=== PATIENT | female | born 1955 | race Caucasian/White ===

== ENCOUNTER 2019-11-27 10:30 | Inpatient (IN) | payer OTHER ==
[~2019-11-27] VITALS: Ht 162.6 cm; Wt 99.6 kg
[2019-11-27] MEDS ORDERED: ONDANSETRON PF 4 MG/2 ML VIAL. ONE (10:49)
[2019-11-27] MEDS ORDERED: MORPHINE SULFATE 4 MG/ML DISP.SYRIN. IV ONE (11:00)
[2019-11-27] MEDS ORDERED: ONDANSETRON PF 4 MG/2 ML VIAL. IVP ONE (11:00)
[2019-11-27] MEDS ORDERED: IV NORMAL SALINE 1,000ML 1,000 ML IV ONE (11:00)
--- NOTE | 2019-11-27 11:00 | PHYS DOC ---
Adult General Chief Complaint Chief Complaint: ABDOMINAL PAIN HPI HPI 64-year-old female presents with central abdominal pain. The patient had pain after she ate lunch yesterday. She also felt bloated. She took an antacid from [facility] and the pain seemed to improve. The patient was able to sleep overnight. Today, the patient had the pain spontaneously come back. It is an 8 out of 10 central cramping with bloating. She has not had pain like this before. She had a normal bowel movement last night. She feels nauseous but did not vomit until she got to the ER. She also felt like she was having cold sweats at home. She had not been feeling ill prior to yesterday afternoon. No measured fever. Review of Systems Review of Systems Constitutional: Denies fever or chills [] Eyes: Denies change in visual acuity, redness, or eye pain [] HENT: Denies nasal congestion or sore throat [] Respiratory: Denies cough or shortness of breath [] Cardiovascular: No additional information not addressed in HPI [] GI: abdominal pain, nausea, vomiting. Denies bloody stools or diarrhea [] : Denies dysuria or hematuria [] Musculoskeletal: Denies back pain or joint pain [] Integument: Denies rash or skin lesions [] Neurologic: Denies headache, focal weakness or sensory changes [] Endocrine: Denies polyuria or polydipsia [] All other systems were reviewed and found to be within normal limits, except as documented in this note. Current Medications Current Medications Current Medications Medications (Trade) Dose Ordered Sig/Lonny Start Time Stop Time Status Last Admin Dose Admin Ondansetron HCl (Zofran) 4 mg STK-MED ONCE 11/27/19 10:49 11/27/19 10:49 DC Sodium Chloride 1,000 ml @ 1,000 mls/hr 1X ONCE 11/27/19 11:00 11/27/19 11:59 UNV Physical Exam Physical Exam Constitutional: Well developed, obese, well nourished, no acute distress, non- toxic appearance. [] HENT: Normocephalic, atraumatic, bilateral external ears normal, oropharynx moist, no oral exudates, nose normal. [] Eyes: PERRLA, EOMI, conjunctiva normal, no discharge. [] Neck: Normal range of motion, no tenderness, supple, no stridor. [] Cardiovascular: Heart rate regular rhythm, no murmur [] Lungs & Thorax: Bilateral breath sounds clear to auscultation [] Abdomen: Bowel sounds normal, soft, mild generalized tenderness, no masses, no pulsatile masses. [] Skin: Warm, dry, no erythema, no rash. [] Back: No tenderness, no CVA tenderness. [] Extremities: No tenderness, no cyanosis, no clubbing, ROM intact, no edema. [] Neurologic: Alert and oriented X 3, normal motor function, normal sensory function, no focal deficits noted. [] Psychologic: Affect normal, judgement normal, mood anxious. [] EKG EKG Sinus bradycardia, rate 51, normal axis, no salivation depressions[] Radiology/Procedures Radiology/Procedures [] Impressions: Examination: CT ABDOMEN PELVIS WO CONTRAST History: Central abdominal pain. Nausea. Comparison/Correlation: None Findings: Axial images of the abdomen and pelvis were obtained without contrast. Coronal reformatted images were provided. Visualized lung bases are clear. Unenhanced liver and spleen are unremarkable. Gallbladder is mildly distended. Calculus is noted within the gallbladder measuring up to 0.7 cm diameter. No biliary dilatation. Pancreas is diffusely enlarged with peripancreatic edema and stranding. No extraluminal gas. Appendix is normal. Moderate quantity of stool in the colon. Borderline distention of proximal small bowel with fluid within likely representing focal ileus noted. Distal decompressed small bowel noted. Right renal pelvis calculus measuring up to 1.1 cm diameter is present. There is an additional calculus lateral to this larger calculus measuring 0.4 cm diameter. Right extrarenal pelvis. Left renal cyst is present. No radiopaque left collecting system calculi. Enlarged fibroid uterus is present. Urinary bladder is unremarkable. L5-S1 disc space narrowing is present. Bony structures are grossly unremarkable. Impression: Pancreas is enlarged with surrounding edema and stranding compatible with acute pancreatitis. No loculated collections. Focal mass lesion is not delineated but evaluation is very limited on this noncontrast exam. Borderline distended proximal small bowel which represents ileus. Consider continued follow-up to exclude possibility of obstruction. Nonobstructive right renal pelvis calculi. Cholelithiasis. Fibroid uterus. PQRS Compliance Statement: One or more of the following individualized dose reduction techniques were utilized for this examination: 1. Automated exposure control 2. Adjustment of the mA and/or kV according to patient size 3. Use of iterative reconstruction technique Electronically signed by: Chris Arias MD (11/27/2019 11:54 AM) [facility] DICTATED AND SIGNED BY: CHRIS ARIAS MD DATE: 11/27/19 1154 CC: MARIETTA ALSTON DO; ZIGGY MURRELL DO ~ Course & Med Decision Making Course & Med Decision Making Pertinent Labs and Imaging studies reviewed. (See chart for details) The patient's labs are significant for slightly elevated liver enzyme, slightly elevated white count, and a creatinine 1.6. Patient has known kidney disease. Her CT scan shows likely pancreatitis. See official report for more details. I have ordered a lipase and an abdominal ultrasound. I spoke with Dr. Neil and he has accepted patient for admission. The patient is in agreement with admission at this facility. She is nothing by mouth and placed on D5NS. [] Dragon Disclaimer Dragon Disclaimer This electronic medical record was generated, in whole or in part, using a voice recognition dictation system. Departure Departure: Impression: Primary Impression: Pancreatitis Disposition: ADMITTED INPATIENT Admitting Physician: Belen Neil Condition: STABLE Referrals: MARIETTA ALSTON DO (PCP) Problem Qualifiers Primary Impression: Pancreatitis Chronicity: acute Pancreatitis type: idiopathic Acute pancreatitis complication: no infection or necrosis Qualified Codes: K85.00 - Idiopathic acute pancreatitis without necrosis or infection ZIGGY MURRELL DO Nov 27, 2019 11:00
[2019-11-27] MEDS ORDERED: IOHEXOL 300 MG/ML 75 ML VIAL. IV ONE (11:15)
[2019-11-27 11:17] LABS: BASO # 0.1 x10^3/uL (0.0-0.2); BASO % 1 % (0-3); EOS # 0.1 x10^3/uL (0.0-0.7); EOS % 1 % (0-3); HEMATOCRIT 38.1 % (36.0-47.0); HEMOGLOBIN 12.7 g/dL (12.0-15.5); LYMPH # 2.3 x10^3/uL (1.0-4.8); LYMPH % 18 % (24-48); MEAN CORPUSCULAR HEMOGLOBIN 28 pg (25-35); MEAN CORPUSCULAR HGB CONC 33 g/dL (31-37); MEAN CORPUSCULAR VOLUME 84 fL (79-100); MONO # 0.7 x10^3/uL (0.0-1.1); MONO % 5 % (0-9); NEUT # 9.5 x10^3uL (1.8-7.7); NEUT % 75 % (31-73); PLATELET COUNT 251 x10^3/uL (140-400); RED BLOOD COUNT 4.53 x10^6/uL (3.50-5.40); RED CELL DISTRIBUTION WIDTH 14.4 % (11.5-14.5); WHITE BLOOD COUNT 12.6 x10^3/uL (4.0-11.0)
--- NOTE | 2019-11-27 11:21 | RAD ---
CHEST AP ONLY Clinical indications: Abdominal pain. COMPARISON: None available. Findings: No acute lung infiltrate or pleural effusion or pulmonary edema or lung mass or pneumothorax is seen. The heart size, pulmonary vasculature, mediastinum and both pete are unremarkable. Impression: No acute radiographic abnormality is seen. Electronically signed by: Timur Mehta MD (11/27/2019 11:18 AM) [id number]
[2019-11-27 11:31] LABS: CALCIUM 9.7 mg/dL (8.5-10.1); CREATININE 1.6 mg/dL (0.6-1.0); GFR 32.5; POTASSIUM 3.4 mmol/L (3.5-5.1)
[2019-11-27 11:36] LABS: ALBUMIN 3.7 g/dL (3.4-5.0); TOTAL BILIRUBIN 1.3 mg/dL (0.2-1.0); TOTAL PROTEIN 7.5 g/dL (6.4-8.2)
--- NOTE | 2019-11-27 11:58 | RAD ---
Examination: CT ABDOMEN PELVIS WO CONTRAST History: Central abdominal pain. Nausea. Comparison/Correlation: None Findings: Axial images of the abdomen and pelvis were obtained without contrast. Coronal reformatted images were provided. Visualized lung bases are clear. Unenhanced liver and spleen are unremarkable. Gallbladder is mildly distended. Calculus is noted within the gallbladder measuring up to 0.7 cm diameter. No biliary dilatation. Pancreas is diffusely enlarged with peripancreatic edema and stranding. No extraluminal gas. Appendix is normal. Moderate quantity of stool in the colon. Borderline distention of proximal small bowel with fluid within likely representing focal ileus noted. Distal decompressed small bowel noted. Right renal pelvis calculus measuring up to 1.1 cm diameter is present. There is an additional calculus lateral to this larger calculus measuring 0.4 cm diameter. Right extrarenal pelvis. Left renal cyst is present. No radiopaque left collecting system calculi. Enlarged fibroid uterus is present. Urinary bladder is unremarkable. L5-S1 disc space narrowing is present. Bony structures are grossly unremarkable. Impression: Pancreas is enlarged with surrounding edema and stranding compatible with acute pancreatitis. No loculated collections. Focal mass lesion is not delineated but evaluation is very limited on this noncontrast exam. Borderline distended proximal small bowel which represents ileus. Consider continued follow-up to exclude possibility of obstruction. Nonobstructive right renal pelvis calculi. Cholelithiasis. Fibroid uterus. PQRS Compliance Statement: One or more of the following individualized dose reduction techniques were utilized for this examination: 1. Automated exposure control 2. Adjustment of the mA and/or kV according to patient size 3. Use of iterative reconstruction technique Electronically signed by: Chris Lugo MD (11/27/2019 11:54 AM) [facility] [place]
[2019-11-27] MEDS ORDERED: ACETAMINOPHEN 325 MG TABLET PO PRN (12:45)
[2019-11-27] MEDS ORDERED: HYDROmorphone PF 1 MG/ML DISP.SYRIN IV ONE (12:45)
[2019-11-27] MEDS ORDERED: IV DEXTROSE 5%-LACT RINGERS 1,000 ML IV ONE (12:45)
--- NOTE | 2019-11-27 13:50 | RAD ---
Limited abdominal ultrasound 11/27/2019 INDICATION: Pancreatitis, rule out obstruction, mass COMPARISON STUDY: CT of the abdomen, earlier same day Discussion: Ultrasound evaluation of the upper abdomen was performed. Static images are submitted to PACS. The pancreas appears somewhat thickened and mildly inhomogeneous consistent with pancreatitis seen on prior CT scan. The liver is top normal in size measuring 17 cm longitudinally. No gross intrahepatic biliary dilatation is identified sonographically. No focal hepatic lesions are identified. Multiple shadowing stones are noted within the gallbladder. No pericholecystic fluid is seen. The gallbladder wall is nonthickened. Common bile duct is dilated measuring 1.2 cm in diameter. Duct is dilated the pancreatic head measuring 1.1 cm in diameter. Definitive choledocholithiasis is not identified sonographically, though sensitivity is poor for this finding. IMPRESSION: 1. Cholelithiasis without evidence of cholecystitis. Dilatation of the common bile duct in the setting of pancreatitis. If there is continued concern for choledocholithiasis or biliary obstruction MRCP or ERCP may be helpful. 2. Thickening of the visualized pancreas consistent with provided history Electronically signed by: Contreras Villanueva MD (11/27/2019 1:47 PM) [id number]
[2019-11-27 16:04] VITALS: BP 149/74
[2019-11-27] MEDS ORDERED: CHLO25TA9 PO (16:21)
[2019-11-27] MEDS ORDERED: METO50TA29 PO (16:21)
[2019-11-27] MEDS ORDERED: OLME40TA12 PO (16:21)
[2019-11-27] MEDS ORDERED: CHOL200078 PO (16:21)
[2019-11-27] MEDS ORDERED: SPIR25TA5 PO (16:21)
[2019-11-27] MEDS ORDERED: LEVO100T5 PO (16:21)
--- NOTE | 2019-11-27 16:34 | EKG ---
[address] [address] Test Date: 2019-11-27 Test Time: 11:12:25 Pat Name: CORTNEY REYNOSO Department: Room: Gender: F Foundation Assistant: : 1955 Requested By: ZIGGY MURRELL Order Number: [id number] Reading MD: Measurements Intervals [place] Rate: 51 P: 29 SC: 174 QRS: -14 QRSD: 90 T: 24 QT: 468 QTc: 433 Interpretive Statements SINUS RHYTHM INTERPOLATED VENTRICULAR PREMATURE COMPLEX(ES) ATRIAL PREMATURE COMPLEX(ES) LEFTWARD AXIS QRS(T) CONTOUR ABNORMALITY CONSIDER ANTEROLATERAL MYOCARDIAL DAMAGE ABNORMAL ECG RI6.01 No previous ECG available for comparison
[2019-11-27] MEDS: ONDANSETRON PF 4 MG/2 ML VIAL. IV PRN (17:07)
--- NOTE | 2019-11-27 17:34 | HP ---
ADMIT DATE: 11/27/2019 HISTORY OF PRESENT ILLNESS: The patient is a 64-year-old female patient who came to the Emergency Room complaining of abdominal pain that is diffuse. She stated her pain started yesterday when she ate her lunch and felt bloated. She took her antacid from [facility]. The pain seems to have improved. She was able to sleep overnight and this morning. The patient has pain spontaneously come back. It is 8/10 central cramping with bloating. She has had pain like this before. She had a normal bowel movement last night. She feels nauseous, but not vomit until she got to the ER. She also felt like she was having cold sweats at home. She was extensively investigated in the Emergency Room. Her lab work showed her white cell count to be slightly elevated 12,600 and her serum lipase was 68,400; mild hyperkalemia and impaired kidney function with a creatinine of 1.6. Her blood sugar was also slightly elevated. Her AST, ALT, alkaline phosphatase were all elevated. She did have a CT scan of the abdomen showed that the pancreas is enlarged with surrounding edema and stranding compatible with acute pancreatitis. No loculated collection focal mass lesion is not delineated, but evaluation is very limited on this noncontrast exam; borderline distended proximal small bowel, which represents ileus. Consider continued followup to exclude the possibility of obstruction. She has nonobstructive right renal pelvis calculi. The gallbladder is mildly distended calculus is noted within the gallbladder measuring up to 0.7 cm in diameter. No biliary dilatation. She was admitted and continued on IV fluid, kept n.p.o., pain medication as well as antiemetic did have also abdominal ultrasound, which showed cholelithiasis without evidence of cholecystitis dilatation of the common bile duct in the setting of pancreatitis. There is continued concern for choledocholithiasis or biliary obstruction. MRCP or ERCP may be helpful thickening of the visualized pancreas consistent with provided history. PAST MEDICAL HISTORY: Significant for hypertension, chronic kidney disease, hyperlipidemia, hypothyroidism, generalized osteoarthritis and cholelithiasis. PAST SURGICAL HISTORY: Significant for , treatment of fissure in anal. ALLERGIES: SHE IS ALLERGIC TO AMOXICILLIN/CLAVULANIC ACID, SULFAMETHOXAZOLE, TRIMETHOPRIM. MEDICATIONS: She is currently on following medications: She is on metoprolol succinate 50 mg p.o. daily, olmesartan, medoxomil, Benicar 40 mg once a day, spironolactone 12.5 mg once a day, chlorthalidone 12.5 mg daily, levothyroxine sodium 100 mcg once a day, cholecalciferol vitamin D3 2000 unit once a day. FAMILY HISTORY: She has one sister older at the age of 72 and seemingly healthy. One brother at age of 59 because of pancreatic cancer. Her another brother is alive at age of 62 and seemingly healthy. Her father at age of 80 because of Parkinson's disease and her mother at age of 81, the cause of is not clear. SOCIAL HISTORY: She is , has 1 son. She does not smoke, drink alcohol very occasionally. Does not use any drugs. 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 REVIEW OF SYSTEMS: As per history of present illness. PHYSICAL EXAMINATION: GENERAL: On arrival to the Emergency Room, the patient looked well and was clearly in no apparent respiratory distress. No pallor, jaundice, cyanosis or thyromegaly. No jugular venous distension. No limb edema. VITAL SIGNS: Her heart rate was 50, blood pressure was 149/74, temperature was 98.6, respiratory rate was 16, and oxygen saturation was 98%. HEAD, EYES, EARS, NOSE AND THROAT: Showed normocephalic, atraumatic. NECK: Supple. HEART: Showed normal first and second heart sounds. No gallop, rub or murmur. CHEST: Clear to auscultation. No crepitation or rhonchi. ABDOMEN: Distended, soft, tender mostly in the epigastric area. NEUROLOGIC: She was awake, alert, responding appropriately. All cranial nerves intact. EXTREMITIES: She moves extremities without difficulty. LABORATORY DATA: Showed a white cell count 12,600; hemoglobin 12.7; hematocrit 38; MCV 84 and platelet count 251,000. Her manual differential showed 75% polymorphs, 18% lymphocytes. Her chemistry showed a serum sodium 138, potassium 3.4, chloride 104, bicarbonate 22, anion gap of 12, BUN 33, creatinine 1.6, estimated GFR was 32 mL per minute. Her glucose 179, calcium was 9.7. Total bilirubin, AST, ALT, alkaline phosphatase are all elevated. Total protein 7.3, albumin was 3.7. Serum lipase was 68,400. ASSESSMENT AND PLAN: In summary, this is a 64-year-old female patient who was admitted with central abdominal pain associated with bloating and nausea. Her lab work showed that serum lipase was extremely high. She has ultrasound showed that she has cholelithiasis without evidence of cholecystitis dilatation of the common bile duct in the setting of pancreatitis. If there is continued concern for choledocholithiasis or biliary obstruction, MRCP or ERCP may be helpful. She has thickening of the visualized pancreas consistent with provided history. Given the finding on the CT scan and MRI done and the ultrasound, I decided to transfer the patient to [facility] to arrange for MRCP to get a Surgical and a Gastroenterology consult. ESTRADA ELLIOTT MD DR: MARGARITO/radha JOB#: [id number] / [id number]
[2019-11-27 19:24] VITALS: BP 145/77
[2019-11-27] MEDS: HYDROmorphone PF 1 MG/ML DISP.SYRIN IV PRN ×2 (22:24→22:29)
[2019-11-27 22:44] VITALS: BP 145/76
[2019-11-28] MEDS: HYDROmorphone PF 1 MG/ML DISP.SYRIN IV PRN ×2 (03:57→07:57)
[2019-11-28 05:59] VITALS: BP 150/74
[2019-11-28 06:15] LABS: BASO # 0.1 x10^3/uL (0.0-0.2); BASO % 1 % (0-3); EOS % 0 % (0-3); HEMATOCRIT 35.2 % (36.0-47.0); HEMOGLOBIN 11.6 g/dL (12.0-15.5); LYMPH # 0.6 x10^3/uL (1.0-4.8); LYMPH % 5 % (24-48); MEAN CORPUSCULAR HEMOGLOBIN 28 pg (25-35); MEAN CORPUSCULAR HGB CONC 33 g/dL (31-37); MEAN CORPUSCULAR VOLUME 84 fL (79-100); MONO # 0.5 x10^3/uL (0.0-1.1); MONO % 4 % (0-9); NEUT # 11.8 x10^3uL (1.8-7.7); NEUT % 91 % (31-73); PLATELET COUNT 199 x10^3/uL (140-400); RED BLOOD COUNT 4.21 x10^6/uL (3.50-5.40); RED CELL DISTRIBUTION WIDTH 14.4 % (11.5-14.5)
[2019-11-28 06:16] LABS: ALBUMIN 3.2 g/dL (3.4-5.0); ALBUMIN/GLOBULIN RATIO 0.9 (1.0-1.7); CALCIUM 8.2 mg/dL (8.5-10.1); CREATININE 2.1 mg/dL (0.6-1.0); GFR 23.7; POTASSIUM 5.1 mmol/L (3.5-5.1); TOTAL BILIRUBIN 0.5 mg/dL (0.2-1.0); TOTAL PROTEIN 6.6 g/dL (6.4-8.2)
[2019-11-28] MEDS: ONDANSETRON PF 4 MG/2 ML VIAL. IV PRN (08:20)
[2019-11-28 10:12] VITALS: BP 132/67
[2019-11-28] MEDS ORDERED: IV DEXTROSE 5%-LACT RINGERS 1,000 ML IV SCH (10:30)
[2019-11-28] MEDS ORDERED: IV DEXTROSE 5 %-0.45 % NACL 1,000 ML IV SCH (14:30)
[2019-11-28 14:38] VITALS: BP 143/75
[2019-11-28 15:21] LABS: CALCIUM 8.5 mg/dL (8.5-10.1); GFR 25.1; POTASSIUM 4.5 mmol/L (3.5-5.1)
[2019-11-28 19:19] VITALS: BP 147/79
--- NOTE | 2019-11-28 23:37 | PN ---
DATE: 11/28/2019 SUBJECTIVE: The patient is resting, slightly propped up in bed, continued to complain of severe abdominal pain. Denied any nausea or vomiting. PHYSICAL EXAMINATION: GENERAL: When I examined her this afternoon, she looked well and was clearly in no apparent respiratory distress, pale, not jaundiced, cyanosed or thyromegaly. No jugular venous distention. No limb edema. VITAL SIGNS: Her heart rate was 84, blood pressure 132/67, temperature 97.8, respiratory rate was 18 and oxygen saturation was 90%. HEAD, EYES, EARS, NOSE AND THROAT: Normocephalic, atraumatic. NECK: Supple. HEART: Showed normal first and second heart sounds. No gallop or murmur. CHEST: Clear to auscultation. No crepitation or rhonchi. ABDOMEN: Distended. Tenderness mostly in the right upper quadrant and epigastric area. No guarding or rigidity. No organomegaly. All hernial orifices intact. Bowel sounds normal. NEUROLOGIC: She is awake, alert, responding appropriately. All cranial nerves intact. She moves extremities without difficulty. Her intake over the last 24 hours was completely recorded. LABORATORY DATA: Showed a white cell count of 13,000, hemoglobin 11.6, hematocrit 35, MCV 84 and platelet count of 199,000. Her chemistry showed a serum sodium 144, potassium 5.1, chloride 108, bicarbonate 26, anion gap of 10, BUN 43, creatinine 2.1, estimated GFR was 23 mL per minute. Her glucose was 140, calcium was 8.2. AST, ALT, alkaline phosphatase were slightly elevated, though they are trending down. Her total protein was 6.6, albumin 3.2. Her lipase was 13,580. ASSESSMENT: 1. Acute pancreatitis, likely due to gallstone pancreatitis. 2. Cholelithiasis without evidence of cholecystitis. Dilatation of common bile duct in the setting of pancreatitis. Other medical problems include hypertension, chronic kidney disease, hyperlipidemia, hypothyroidism, generalized osteoarthritis and known cholelithiasis. ESTRADA ELLIOTT MD DR: MARGARITO/radha JOB#: [id number] / [id number]
== END 2019-11-28 19:50 | disposition short-term general hospital (02) | DRG 438 ==
LOC: ER 10:30 → 1 SOUTH 15:44
PROVIDERS: ADMIT Internal Medicine; ATTEND Internal Medicine
DX: K85.10 Biliary acute pancreatitis without necrosis or infection (principal); N17.0 Acute kidney failure with tubular necrosis; D25.9 Leiomyoma of uterus, unspecified; E03.9 Hypothyroidism, unspecified; E78.5 Hyperlipidemia, unspecified; E87.5 Hyperkalemia; I12.9 Hypertensive chronic kidney disease with stage 1 through stage 4 chronic kidney disease, or unspecified chronic kidney disease; K80.20 Calculus of gallbladder without cholecystitis without obstruction; M15.9 Polyosteoarthritis, unspecified; N18.9 Chronic kidney disease, unspecified; N20.0 Calculus of kidney; Z80.0 Family history of malignant neoplasm of digestive organs; Z82.0 Family history of epilepsy and other diseases of the nervous system; Z88.1 Allergy status to other antibiotic agents; Z79.899 Other long term (current) drug therapy
CPT/HCPCS: 36415; 71045; 74176; 76705; 80048; 80053; 83690; 84484; 85025; 93005; 96361; 96374; 96375; J1170; J2270; J2405; J3010; 99285-25; J7030

== ENCOUNTER 2020-08-07 22:58 | Emergency (ER) | payer OTHER ==
[~2020-08-07] VITALS: Ht 165.1 cm; Wt 97.3 kg
[~2020-08-07 22:58] MED LIST: CHLO25TA9 PO; CHOL200078 PO; LEVO100T5 PO; METO50TA29 PO; OLME40TA12 PO; SPIR25TA5 PO
--- NOTE | 2020-08-07 23:05 | PHYS DOC ---
Past History Past Medical History: Gallstones, Hypertension, Hypothyroid, Kidney Stones, Pancreatitis, UTI, Other Additional Past Medical Histor: ckd3 Past Surgical History: Cholecystectomy, Alcohol Use: None Drug Use: None General Adult HPI: HPI: "... I had this terrible discomfort in my abdomen and right flank... It is kind like a kidney stone but not may be more like a urinary tract infection... But it was so bad that I vomited that is what I decided I need to go to the emergency room... Patient is a 64 year old female who presents with above hx and complaints of right flank and lower right quadrant abdomen tenderness. Onset was tonight. Has had recently history of pancreatitis and cholecystectomy. The Pt. follows , glomerulonephritis, previous kidney stones and a urinary tract infection. Patient denies any travel. Has been in country 20 years from [facility]. Patient only follows at [place] for care. No history of bad food. No history immunosuppression. Patient does have history of glomerulonephritis which he follows at . No history of ill contacts. Review of Systems: Review of Systems: Constitutional: Denies fever or chills Eyes: Denies change in visual acuity HENT: Denies nasal congestion or sore throat Respiratory: Denies cough or shortness of breath Cardiovascular: Denies chest pain or edema GI: Complains of abdominal pain, nausea, vomiting,. Denies bloody stools or diarrhea : Denies dysuria Musculoskeletal: Complains of right flank back pain Integument: Denies rash Neurologic: Denies headache, focal weakness or sensory changes Endocrine: Denies polyuria or polydipsia Lymphatic: Denies swollen glands Psychiatric: Denies depression or anxiety Heart Score: HEART Score for Chest Pain: HEART Score for Chest Pain Response (Comments) Value History Slighlty/Non-Suspicious 0 ECG Normal 0 Age >45 - < 65 1 Risk Factors 1 or 2 Risk Factors 1 Troponin < Normal Limit 0 Total 2 Risk Factors: Risk Factors: DM, Current or recent (<one month) smoker, HTN, HLP, family history of CAD, obesity. Risk Scores: Score 0 - 3: 2.5% MACE over next 6 weeks - Discharge Home Score 4 - 6: 20.3% MACE over next 6 weeks - Admit for Clinical Observation Score 7 - 10: 72.7% MACE over next 6 weeks - Early Invasive Strategies Family History: Family History: Noncontributory to presentation Current Medications: Current Meds: See nursing for home meds Allergies: Allergies: Allergies Coded Allergies Type Severity Reaction Last Updated Verified amoxicillin Allergy Unknown 11/27/19 Yes clavulanic acid Allergy Unknown 11/27/19 Yes sulfamethoxazole Allergy Unknown 11/27/19 Yes trimethoprim Allergy Unknown 11/27/19 Yes Physical Exam: PE: Constitutional: Moderate acute distress, non-toxic appearance. [] HENT: Normocephalic, atraumatic, bilateral external ears normal, oropharynx moist, no oral exudates, nose normal. [] Eyes: PERRLA, EOMI, conjunctiva normal, no discharge. [] Neck: Normal range of motion, no tenderness, supple, no stridor. [] Cardiovascular:Heart rate regular rhythm, no murmur [] Lungs & Thorax: Bilateral breath sounds equal apex on auscultation [] Abdomen: Bowel sounds decreased,, soft, mild right lower quadrant tenderness, no masses, no pulsatile masses. Old surgery scars Skin: Warm, dry, no erythema, no rash. [] Back: No tenderness, right CVA tenderness. [] Extremities: No tenderness, no cyanosis, no clubbing, ROM intact, no edema. No psoas. No heeltap Neurologic: Alert and oriented X 3, normal motor function, normal sensory function, no focal deficits noted. [] Psychologic: Affect anxious, judgement normal, mood normal. [] EKG: EKG: My interpretation of EKG shows a sinus rhythm at 67 bpm. There is mild leftward axis. But no findings of acute STEMI or contralateral changes. [] Radiology/Procedures: Radiology/Procedures: [][address] [address] IMAGING REPORT Signed PATIENT: CORTNEY REYNOSO ACCOUNT: [id number] : 1955 LOCATION: ER AGE: 64 SEX: F EXAM STATUS: REG ER ORD. PHYSICIAN: MARIO STEEL MD REASON: URNINARY FREQ & PAIN.HX KIDNEY STONE,GLOMERULONEPHRITIS,AMIRAH PROCEDURE: ACUTE ABDOMEN SERIES Examination: Acute abdominal series HISTORY: History of renal stone, urinary frequency, pain COMPARISON: None available FINDINGS: The cardiomediastinal silhouette grossly appears unremarkable. Minimal bibasilar atelectasis. The bowel gas pattern appears unremarkable. Cholecystectomy changes. IMPRESSION: 1. Unremarkable bowel gas. 2. Mild bibasilar lung airspace opacities likely atelectasis or infiltrates. Electronically signed by: Drake La MD (08/07/2020 11:36 PM) [id number] DICTATED AND SIGNED BY: DRAKE LA MD DATE: 08/07/202335 CC: MARIETTA ALSTON DO; MARIO STEEL MD ~ IMAGING REPORT Signed PATIENT: CORTNEY REYNOSO ACCOUNT: [id number] : 1955 LOCATION: ER AGE: 64 SEX: F EXAM STATUS: REG ER ORD. PHYSICIAN: MARIO STEEL MD REASON: URNINARY FREQ & PAIN.HX KIDNEY STONE,GLOMERULONEPHRITIS,AMIRAH PROCEDURE: ACUTE ABDOMEN SERIES Examination: Acute abdominal series HISTORY: History of renal stone, urinary frequency, pain COMPARISON: None available FINDINGS: The cardiomediastinal silhouette grossly appears unremarkable. Minimal bibasilar atelectasis. The bowel gas pattern appears unremarkable. Cholecystectomy changes. IMPRESSION: 1. Unremarkable bowel gas. 2. Mild bibasilar lung airspace opacities likely atelectasis or infiltrates. Electronically signed by: Drake La MD (08/07/2020 11:36 PM) [id number] DICTATED AND SIGNED BY: DRAKE LA MD DATE: 08/07/202335 CC: MARIETTA ALSTON DO; MARIO STEEL MD ~ Course & Med Decision Making: Course & Med Decision Making Pertinent Labs and Imaging studies reviewed. (See chart for details) Patient follow-up with primary care. Patient follow-up urology and nephrology. Patient take Tylenol for pain. For marked pain may take Percocet. May take Zofran 8 mg up to 4 times a day for active vomiting. Take Keflex 500 mg 3 times a day for 7 days. Follow-up urine culture. Return if any concerns. Impression: 1. Abdomen Pain 2. Renal colic right 3. Kidney stone distal right with hydronephrosis 4. History of glomerulonephritis 5. Anemia hemoglobin 11.3 6. Mild elevation BUN/creatinine 43/1.8 7. Hypo-magnesium 1.6 [] Dragon Disclaimer: [place] Disclaimer: This electronic medical record was generated, in whole or in part, using a voice recognition dictation system. Departure Departure: Disposition: HOME/RESIDENCE PRIOR TO ADM Condition: STABLE Referrals: MARIETTA ALSTON DO (PCP) Scripts Ondansetron Hcl (ZOFRAN) 8 Mg Tablet 8 MG PO QIDPRN PRN for NAUSEA, #30 BOTTLE Prov: MARIO STEEL MD 08/08/20 Oxycodone HCl/Acetaminophen (Percocet 5-325 mg Tablet) 1 Each Tablet 1 TAB PO PRN QID PRN for renal colic, pain MDD 4 Tablet(s) for 5 Days, #30 TAB 0 Refills Prov: MARIO STEEL MD 08/08/20 Cephalexin (KEFLEX) 500 Mg Capsule 500 MG PO TID for UTI for 7 Days, BOT Prov: MARIO STEEL MD 08/08/20 Justification of Admission: Justification of Admission: Justification of Admission Dx: N/A Dragon Disclaimer This chart was dictated in whole or in part using Voice Recognition software in a busy, high-work load, and often noisy Emergency Department environment. It may contain unintended and wholly unrecognized errors or omissions. Dragon Disclaimer This chart was dictated in whole or in part using Voice Recognition software in a busy, high-work load, and often noisy Emergency Department environment. It may contain unintended and wholly unrecognized errors or omissions. MARIO STEEL MD Aug 07, 2020 23:05
[2020-08-07] MEDS ORDERED: IV RINGERS SOLUTION,LACTATED 1,000 ML IV SCH (23:15)
--- NOTE | 2020-08-07 23:38 | RAD ---
Examination: Acute abdominal series HISTORY: History of renal stone, urinary frequency, pain COMPARISON: None available FINDINGS: The cardiomediastinal silhouette grossly appears unremarkable. Minimal bibasilar atelectasis. The bowel gas pattern appears unremarkable. Cholecystectomy changes. IMPRESSION: 1. Unremarkable bowel gas. 2. Mild bibasilar lung airspace opacities likely atelectasis or infiltrates. Electronically signed by: Drake La MD (08/07/2020 11:36 PM) [id number]
[2020-08-08 00:27] LABS: BASO % 0 % (0-3); EOS # 0.1 x10^3/uL (0.0-0.7); EOS % 1 % (0-3); HEMATOCRIT 33.7 % (36.0-47.0); HEMOGLOBIN 11.5 g/dL (12.0-15.5); LYMPH # 1.6 x10^3/uL (1.0-4.8); LYMPH % 15 % (24-48); MEAN CORPUSCULAR HEMOGLOBIN 29 pg (25-35); MEAN CORPUSCULAR HGB CONC 34 g/dL (31-37); MEAN CORPUSCULAR VOLUME 85 fL (79-100); MONO # 0.6 x10^3/uL (0.0-1.1); MONO % 6 % (0-9); NEUT # 8.1 x10^3uL (1.8-7.7); NEUT % 78 % (31-73); PLATELET COUNT 210 x10^3/uL (140-400); RED BLOOD COUNT 3.95 x10^6/uL (3.50-5.40); RED CELL DISTRIBUTION WIDTH 13.7 % (11.5-14.5); WHITE BLOOD COUNT 10.4 x10^3/uL (4.0-11.0)
[2020-08-08 00:28] LABS: CALCIUM 9.3 mg/dL (8.5-10.1); CREATININE 1.8 mg/dL (0.6-1.0); GFR 28.3; POTASSIUM 4.8 mmol/L (3.5-5.1)
[2020-08-08] MEDS ORDERED: PHENAZOPYRIDINE 200 MG TABLET. PO ONE (00:30)
[2020-08-08 00:32] LABS: BILIRUBIN,URINE NEG (NEG); CLARITY,URINE HAZY; COLOR,URINE STRAW; GLUCOSE,URINE NEG (NEG)
[2020-08-08 00:33] LABS: BACTERIA,URINE FEW /HPF (0-FEW); NITRITE,URINE NEG (NEG); RBC,URINE 20-40 /HPF (0-2); SQUAMOUS EPITHELIAL CELL,UR FEW /LPF; UROBILINOGEN,URINE 0.2 mg/dL (0.2 mg/dL)
[2020-08-08 00:41] LABS: ALBUMIN 3.9 g/dL (3.4-5.0); DIRECT BILIRUBIN 0.1 mg/dL (0.0-0.2); MAGNESIUM 1.6 mg/dL (1.8-2.4); TOTAL BILIRUBIN 0.4 mg/dL (0.2-1.0)
[2020-08-08] MEDS ORDERED: IV NORMAL SALINE 50ML 50 ML ONE (01:21)
[2020-08-08] MEDS ORDERED: cefTRIAXone SODIUM 1 GM VIAL ONE (01:21)
--- NOTE | 2020-08-08 01:37 | RAD ---
Examination: CT of the abdomen pelvis without contrast HISTORY: History of renal stones COMPARISON: 11/27/2019 TECHNIQUE: Axial CT images of the abdomen pelvis were performed without contrast coronal and sagittal reformats are performed. Exposure: One or more of the following individualized dose reduction techniques were utilized for this examination: 1. Automated exposure control 2. Adjustment of the mA and/or kV according to patient size 3. Use of iterative reconstruction technique FINDINGS: Minimal left lingular atelectasis. No evidence of free air identified in the abdomen. The visualized noncontrasted liver, spleen, adrenals grossly appears unremarkable.: Cystectomy clips identified. The stomach is mildly distended. The visualized pancreas grossly appears unremarkable. Small bowel is nondilated. The appendix is normal. Feces and gas noted in the colon. Urinary bladder is mildly distended. Cystic structure identified in the left kidney measuring 3.7 cm. There is a 9 mm calculus identified in the right kidney. Moderate right-sided hydronephrosis and mild right hydroureter identified. There is 4 mm calculus identified in the distal right ureter just proximal to the right ureterovesical junction. There is a 4.6 cm density identified abutting the uterus could be a fibroid, unchanged moderate degenerative changes lumbar spine. IMPRESSION: 1. A 4 mm calculus identified in the distal right ureter just proximal to the right ureterovesical junction causing moderate right-sided hydronephrosis and mild right hydroureter. 2. Right nephrolithiasis measuring 9 mm. 3. Fibroid uterus. Electronically signed by: Drake La MD (08/08/2020 1:34 AM) [id number]
[2020-08-08] MEDS ORDERED: OXYC-325 PO (01:54)
[2020-08-08] MEDS ORDERED: ONDA8TAB9 PO (01:54)
[2020-08-08] MEDS ORDERED: CEPH-264 PO (01:54)
[2020-08-08 02:05] VITALS: BP 160/81
--- NOTE | 2020-08-08 04:50 | EKG ---
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
[2020-08-09] MEDS ORDERED: PROM25SU33 RC (10:21)
== END 2020-08-08 02:10 | disposition home or self-care (01) ==
LOC: ER 22:58
DX: N13.2 Hydronephrosis with renal and ureteral calculous obstruction (principal); N05.9 Unspecified nephritic syndrome with unspecified morphologic changes; D64.9 Anemia, unspecified; R79.89 Other specified abnormal findings of blood chemistry; E83.42 Hypomagnesemia; R11.2 Nausea with vomiting, unspecified; I10 Essential (primary) hypertension; E03.9 Hypothyroidism, unspecified; Z87.442 Personal history of urinary calculi; Z87.440 Personal history of urinary (tract) infections; Z90.49 Acquired absence of other specified parts of digestive tract; Z98.890 Other specified postprocedural states; Z88.1 Allergy status to other antibiotic agents; Z88.2 Allergy status to sulfonamides
CPT/HCPCS: 36415; 74022; 74176; 80048; 80076; 81001; 83690; 83735; 83880; 84484; 85025; 85610; 85730; 87086; 93005; 96361; 96374; 99285; J0696; J7120; 87077; 87186

== ENCOUNTER 2020-08-09 07:18 | Emergency (ER) | payer OTHER ==
[~2020-08-09] VITALS: Ht 165.1 cm; Wt 97.3 kg
[~2020-08-09 07:18] MED LIST changes: +CEPH-264 PO; +ONDA8TAB9 PO; +OXYC-325 PO
--- NOTE | 2020-08-09 07:37 | PHYS DOC ---
Past History Past Medical History: Gallstones, Hypertension, Hypothyroid, Kidney Stones, Pancreatitis, UTI, Other Additional Past Medical Histor: glomelular nephritis, anal fistula, rt breast lump Past Surgical History: Cholecystectomy, Additional Past Surgical Histo: anal fistula repairx3; removal of breast lump- rt breast Alcohol Use: None Drug Use: None General Adult EDM: Chief Complaint: NAUSEA/VOMITING/DIARRHEA HPI: HPI: Patient is a 64-year-old female presents with a chief complaint of nausea vomiting. Patient was here 2 days ago and diagnosed with a right ureteral stone. Patient has persistent right flank pain that is radiating to the abdomen but her main problem is nausea vomiting and unable to keep anything down. Patient denies any fever. Pain is not worse with anything but is better with pain meds but she cannot keep them down. Pain is stabbing in the right flank. Review of Systems: Review of Systems: Constitutional: Denies fever or chills Eyes: Denies change in visual acuity HENT: Denies nasal congestion or sore throat Respiratory: Denies cough or shortness of breath Cardiovascular: Denies chest pain or edema GI: Complains of abdominal pain, nausea, and vomiting, but no bloody stools or diarrhea : Denies dysuria Musculoskeletal: Complains of back pain but no joint pain Integument: Denies rash Neurologic: Denies headache, focal weakness or sensory changes Endocrine: Denies polyuria or polydipsia Lymphatic: Denies swollen glands Psychiatric: Denies depression or anxiety Heart Score: Risk Factors: Risk Factors: DM, Current or recent (<one month) smoker, HTN, HLP, family history of CAD, obesity. Risk Scores: Score 0 - 3: 2.5% MACE over next 6 weeks - Discharge Home Score 4 - 6: 20.3% MACE over next 6 weeks - Admit for Clinical Observation Score 7 - 10: 72.7% MACE over next 6 weeks - Early Invasive Strategies Current Medications: Current Meds: Current Medications Medications (Trade) Dose Ordered Sig/Lonny Start Time Stop Time Status Last Admin Dose Admin Ketorolac Tromethamine (Toradol 15mg Vial) 15 mg 1X ONCE 08/09/20 07:45 08/09/20 07:46 UNV Ondansetron HCl (Zofran) 4 mg 1X ONCE 08/09/20 07:45 08/09/20 07:46 UNV Sodium Chloride 1,000 ml @ 1,000 mls/hr 1X ONCE 08/09/20 07:45 08/09/20 08:44 UNV Allergies: Allergies: Allergies Coded Allergies Type Severity Reaction Last Updated Verified amoxicillin Allergy Unknown 08/07/20 Yes clavulanic acid Allergy Unknown 08/07/20 Yes sulfamethoxazole Allergy Unknown 08/07/20 Yes trimethoprim Allergy Unknown 08/07/20 Yes Physical Exam: PE: Constitutional: Well developed, well nourished, no acute distress, non-toxic appearance. [] HENT: Normocephalic, atraumatic, bilateral external ears normal, no trismus nose normal. [] Eyes: PERRLA, EOMI, conjunctiva normal, no discharge. [] Neck: Normal range of motion, no tenderness, supple, no stridor. [] Cardiovascular:Heart rate regular rhythm, no murmur [] Lungs & Thorax: Bilateral breath sounds clear to auscultation [] Abdomen: , soft, no tenderness, no masses, no pulsatile masses. [] Skin: Warm, dry, no erythema, no rash. [] Back: No tenderness, no CVA tenderness. [] Extremities: No tenderness, no cyanosis, no clubbing, ROM intact, no edema. [] Neurologic: Alert and oriented X 3, normal motor function, normal sensory function, no focal deficits noted. [] Psychologic: Affect normal, judgement normal, mood normal. [] Current Patient Data: Labs: Laboratory Tests Test 08/09/20 07:59 08/09/20 08:12 Urine Collection Type Unknown Urine Color Yellow Urine Clarity Clear Urine pH 5.0 Urine Specific Victor 1.025 Urine Protein Neg Urine Glucose (UA) Neg mg/dL Urine Ketones (Stick) Neg mg/dL Urine Blood Mod Urine Nitrite Pos Urine Bilirubin Neg Urine Urobilinogen Dipstick 0.2 mg/dL Urine Leukocyte Esterase Neg Urine RBC 11-20 /HPF Urine WBC 5-10 /HPF Urine Squamous Epithelial Cells Few /LPF Urine Bacteria Few /HPF Urine Mucus Slight /LPF White Blood Count 11.8 x10^3/uL Red Blood Count 3.90 x10^6/uL Hemoglobin 11.2 g/dL Hematocrit 33.5 % Mean Corpuscular Volume 86 fL Mean Corpuscular Hemoglobin 29 pg Mean Corpuscular Hemoglobin Concent 33 g/dL Red Cell Distribution Width 13.8 % Platelet Count 202 x10^3/uL Neutrophils (%) (Auto) 86 % Lymphocytes (%) (Auto) 9 % Monocytes (%) (Auto) 5 % Eosinophils (%) (Auto) 0 % Basophils (%) (Auto) 0 % Neutrophils # (Auto) 10.1 x10^3uL Lymphocytes # (Auto) 1.0 x10^3/uL Monocytes # (Auto) 0.6 x10^3/uL Eosinophils # (Auto) 0.0 x10^3/uL Basophils # (Auto) 0.0 x10^3/uL Sodium Level 137 mmol/L Potassium Level 4.4 mmol/L Chloride Level 103 mmol/L Carbon Dioxide Level 24 mmol/L Anion Gap 10 Blood Urea Nitrogen 38 mg/dL Creatinine 2.0 mg/dL Estimated GFR (Cockcroft-Gault) 25.1 Glucose Level 128 mg/dL Calcium Level 9.1 mg/dL Current Medications Medications (Trade) Dose Ordered Sig/Lonny Route PRN Reason Start Time Stop Time Status Last Admin Dose Admin Sodium Chloride 1,000 ml @ 1,000 mls/hr 1X ONCE IV 08/09/20 07:45 08/09/20 08:44 DC 08/09/20 08:10 Ketorolac Tromethamine (Toradol 15mg Vial) 15 mg 1X ONCE IVP 08/09/20 07:45 08/09/20 07:46 DC 08/09/20 08:11 Ondansetron HCl (Zofran) 4 mg 1X ONCE IVP 08/09/20 07:45 08/09/20 07:46 DC 08/09/20 08:10 Vital Signs: Vital Signs Date Time Temp Pulse Resp B/P (MAP) Pulse Ox O2 Delivery O2 Flow Rate FiO2 08/09/20 07:18 97.8 55 16 149/75 (99 97 Room Air EKG: EKG: [] Radiology/Procedures: Radiology/Procedures: [][address] [address] IMAGING REPORT Signed PATIENT: CORTNEY REYNOSO ACCOUNT: [id number] : 1955 LOCATION: ER AGE: 64 SEX: F EXAM STATUS: REG ER ORD. PHYSICIAN: VERO GORDON MD REASON: r flank pain, kidney stone PROCEDURE: KUB KUB Clinical indications: Right flank pain. Kidney stone. FINDINGS: No radiopaque stone is seen overlying either renal shadow. The stone seen within the distal right ureter on the CT study dated August 08, 2020 cannot be appreciated radiographically since it may not be radiodense. Calcified phleboliths are seen within the left side of the anatomic pelvis. No obstructive bowel pattern is evident. No abnormal fecal retention is seen. The osseous structures appear intact. Cholecystectomy clips are apparent. IMPRESSION: No radiopaque stone is evident. Electronically signed by: Linden Mehta MD (08/09/2020 9:19 AM) [id number] DICTATED AND SIGNED BY: LINDEN MEHTA MD DATE: 08/09/20918 CC: MARIETTA ALSTON DO; VERO GORDON MD ~ [place] [address] IMAGING REPORT Signed PATIENT: CORTNEY REYNOSO ACCOUNT: [id number] : 1955 LOCATION: ER AGE: 64 SEX: F EXAM STATUS: REG ER ORD. PHYSICIAN: VERO GORDON MD REASON: r flank pain, hx of ureteral stone PROCEDURE: RENAL COMPLETE BILATERAL Complete retroperitoneal ultrasound INDICATION: Right flank pain. History of ureteral stone. COMPARISON: Abdomen pelvis CT without IV contrast 08/08/2020 TECHNIQUE: Grayscale and color Doppler imaging focused on the kidneys and urinary bladder was performed transabdominally. FINDINGS: The right kidney measures 13.0 x 5.1 x 5.3 cm and demonstrates hydronephrosis similar to prior. Shadowing echogenic focus at the inferior pole right kidney compatible with residual stone is present. Normal blood flow to the right kidney. Left kidney measures 10.8 x 5.2 x 4.5 cm and contains a cyst with thin internal septation measuring 3.7 x 3.0 x 3.7 cm. No left hydronephrosis or shadowing stones are identified. In the urinary bladder, no stones or wall thickening are identified prevoid volume measures 49 mL. Post void images were not acquired. IMPRESSION: Persistent right hydronephrosis with no ureteral jets seen in the urinary bladder. Cannot confirm successful passage of known distal right ureteral stone. Electronically signed by: Erick Orta MD (08/09/2020 10:01 AM) [facility] DICTATED AND SIGNED BY: ERICK ORTA MD DATE: 08/09/20 1001 CC: MARIETTA ALSTON DO; VERO GORDON MD ~ Course & Med Decision Making: Course & Med Decision Making Pertinent Labs and Imaging studies reviewed. (See chart for details) [] Patient reassessed at 8:45 AM and pain is gone. 64-year-old female presents with female presents with nausea and persistent right flank pain from a kidney stone. Patient feels much better with treatment in ER. BUN and creatinine are relatively stable and ultrasound shows persistent hydro-. Pain is relieved while in the ER. I looked up her urine culture from a couple days ago and looks like a contaminated specimen. Patient will continue the Keflex as her white count is little bit elevated. Patient was given rectal promethazine and given return precautions. Dragon Disclaimer: Dragon Disclaimer: This electronic medical record was generated, in whole or in part, using a voice recognition dictation system. Departure Departure: Impression: Primary Impression: Right ureteral stone Additional Impression: Vomiting Disposition: 01 HOME/RESIDENCE PRIOR TO ADM Condition: STABLE Referrals: MARIETTA ALSTON DO (PCP) urology 2-3 days Patient Instructions: Kidney Stones Additional Instructions: EMERGENCY DEPARTMENT GENERAL DISCHARGE INSTRUCTIONS THANK YOU for coming to the [facility] Emergency Department (ED) today and trusting us with your care. We trust that you had a positive experience in our Emergency Department. YOUR FOLLOW UP INSTRUCTIONS ARE FOLLOWS: Do you have a private doctor? If you do not have a private doctor, please ask for a resource list of physicians or clinics that may be able to assist you with follow up care. The Emergency Physician has interpreted your x-rays. The X-ray specialist will also review them. If there is a change in the findings you will be notified in 48 hours when at all possible. A lab test or lab culture may have been done, your results will be reviewed and you will be notified if you need a change in treatment. ADDITIONAL INSTRUCTIONS AND INFORMATION Your care today has been supervised by a physician who is specially trained in emergency care. Many problems require more than one evaluation for a complete diagnosis and treatment. We recommend that you schedule your follow up appointment as recommended to ensure complete treatment of your illness or injury. If you are unable to obtain follow up care and continue to have a problem, or if your condition worsens we recommend that you return to the ED. We are not able to safely determine your condition over the phone nor are we able to give sound medical advice over the phone. For these safety reasons, if you call for medical advice we will ask you to come to the ED for further evaluation If you have any questions regarding these discharge instructions please call the ED at . SAFETY INFORMATION In the interest of safety, wellness, and injury prevention; we encourage you to wear your seatbelt, if you smoke; quit smoking, and we encourage your family to use protective helmet for bicycling and other sporting events that present an increased risk for head injury. IF YOUR SYMPTOMS WORSEN OR NEW SYMPTOMS DEVELOP, OR YOU HAVE CONCERNS ABOUT YOUR CONDITION; OR IF YOUR CONDITION WORSENS WHILE YOU ARE WAITING FOR YOUR FOLLOW UP APPOINTMENT; EITHER CONTACT YOUR PRIMARY CARE DOCTOR, THE PHYSICIAN WHOSE NAME AND NUMBER YOU WERE GIVEN, OR RETURN TO THE ED IMMEDIATELY. Scripts Promethazine Hcl (PROMETHAZINE HCL) 25 Mg Supp.rect 25 MG RC Q6HRS PRN for NAUSEA, #15 SUPP.RECT Prov: VERO GORDON MD 08/09/20 Justification of Admission: Justification of Admission: Justification of Admission Dx: N/A VERO GORDON MD Aug 09, 2020 07:37
[2020-08-09] MEDS ORDERED: IV NORMAL SALINE 1,000ML 1,000 ML IV ONE (07:45)
[2020-08-09] MEDS ORDERED: ONDANSETRON PF 4 MG/2 ML VIAL. IVP ONE (07:45)
[2020-08-09] MEDS ORDERED: KETOROLAC 15 MG/ML VIAL. IVP ONE (07:45)
[2020-08-09 08:37] LABS: BASO % 0 % (0-3); EOS % 0 % (0-3); HEMATOCRIT 33.5 % (36.0-47.0); HEMOGLOBIN 11.2 g/dL (12.0-15.5); LYMPH % 9 % (24-48); MEAN CORPUSCULAR HEMOGLOBIN 29 pg (25-35); MEAN CORPUSCULAR HGB CONC 33 g/dL (31-37); MEAN CORPUSCULAR VOLUME 86 fL (79-100); MONO # 0.6 x10^3/uL (0.0-1.1); MONO % 5 % (0-9); NEUT # 10.1 x10^3uL (1.8-7.7); NEUT % 86 % (31-73); PLATELET COUNT 202 x10^3/uL (140-400); RED CELL DISTRIBUTION WIDTH 13.8 % (11.5-14.5); WHITE BLOOD COUNT 11.8 x10^3/uL (4.0-11.0)
[2020-08-09 08:43] LABS: CALCIUM 9.1 mg/dL (8.5-10.1); GFR 25.1; POTASSIUM 4.4 mmol/L (3.5-5.1)
[2020-08-09 08:46] LABS: BILIRUBIN,URINE NEG (NEG); CLARITY,URINE CLEAR; COLOR,URINE YELLOW; GLUCOSE,URINE NEG (NEG)
[2020-08-09 08:47] LABS: BACTERIA,URINE FEW /HPF (0-FEW); NITRITE,URINE POS (NEG); SQUAMOUS EPITHELIAL CELL,UR FEW /LPF; UROBILINOGEN,URINE 0.2 mg/dL (0.2 mg/dL)
--- NOTE | 2020-08-09 09:22 | RAD ---
KUB Clinical indications: Right flank pain. Kidney stone. FINDINGS: No radiopaque stone is seen overlying either renal shadow. The stone seen within the distal right ureter on the CT study dated August 08, 2020 cannot be appreciated radiographically since it may not be radiodense. Calcified phleboliths are seen within the left side of the anatomic pelvis. No obstructive bowel pattern is evident. No abnormal fecal retention is seen. The osseous structures appear intact. Cholecystectomy clips are apparent. IMPRESSION: No radiopaque stone is evident. Electronically signed by: Timur Mehta MD (08/09/2020 9:19 AM) [id number]
[2020-08-09 09:54] VITALS: BP 135/63
--- NOTE | 2020-08-09 10:04 | RAD ---
Complete retroperitoneal ultrasound INDICATION: Right flank pain. History of ureteral stone. COMPARISON: Abdomen pelvis CT without IV contrast 08/08/2020 TECHNIQUE: Grayscale and color Doppler imaging focused on the kidneys and urinary bladder was performed transabdominally. FINDINGS: The right kidney measures 13.0 x 5.1 x 5.3 cm and demonstrates hydronephrosis similar to prior. Shadowing echogenic focus at the inferior pole right kidney compatible with residual stone is present. Normal blood flow to the right kidney. Left kidney measures 10.8 x 5.2 x 4.5 cm and contains a cyst with thin internal septation measuring 3.7 x 3.0 x 3.7 cm. No left hydronephrosis or shadowing stones are identified. In the urinary bladder, no stones or wall thickening are identified prevoid volume measures 49 mL. Post void images were not acquired. IMPRESSION: Persistent right hydronephrosis with no ureteral jets seen in the urinary bladder. Cannot confirm successful passage of known distal right ureteral stone. Electronically signed by: Christ Dykes MD (08/09/2020 10:01 AM) [facility] [place]
[2020-08-09] MEDS ORDERED: PROM25SU33 RC (10:21)
== END 2020-08-09 10:30 | disposition home or self-care (01) ==
LOC: ER 07:18
DX: N13.2 Hydronephrosis with renal and ureteral calculous obstruction (principal); R11.2 Nausea with vomiting, unspecified; I10 Essential (primary) hypertension; E03.9 Hypothyroidism, unspecified; Z87.442 Personal history of urinary calculi; Z87.440 Personal history of urinary (tract) infections; Z90.49 Acquired absence of other specified parts of digestive tract; Z98.890 Other specified postprocedural states; Z88.1 Allergy status to other antibiotic agents; Z88.2 Allergy status to sulfonamides; Z88.8 Allergy status to other drugs, medicaments and biological substances
CPT/HCPCS: 36415; 74018; 76770; 80048; 81001; 85025; 87086; 96361; 96374; 96375; 99285; J1885; J2405; J7030

== ENCOUNTER 2020-10-21 15:22 | Emergency (ER) | payer MEDICARE, OTHER ==
[~2020-10-21] VITALS: Ht 165.1 cm; Wt 97.3 kg
[~2020-10-21 15:22] MED LIST changes: +PROM25SU33 RC
[2020-10-21 15:34] VITALS: BP 174/76
--- NOTE | 2020-10-21 15:57 | PHYS DOC ---
Past History Past Medical History: Gallstones, Hypertension, Hypothyroid, Kidney Stones, Pancreatitis, UTI, Other Additional Past Medical Histor: glomelular nephritis, anal fistula, rt breast lump Past Surgical History: Cholecystectomy, Additional Past Surgical Histo: anal fistula repairx3; removal of breast lump- rt breast Alcohol Use: None Drug Use: None General Adult EDM: Chief Complaint: FOOT INJURY PAIN HPI: HPI: Patient is a 65 year old female who presents with right ankle pain. Patient has pain around Achilles and on top of foot with movement that began yesterday morning. Patient believes it is an overuse injury. Denies trauma. Hx of kidney disease so patient preferred no pain medication. Review of Systems: Review of Systems: Constitutional: Denies fever or chills Eyes: Denies redness or eye pain HENT: Denies nasal congestion or sore throat Respiratory: Denies cough or shortness of breath Cardiovascular: Denies chest pain or palpitations GI: Denies abdominal pain, nausea, or vomiting : Denies dysuria or hematuria Musculoskeletal: Denies back pain or joint pain Integument: Denies rash or skin lesions. Reports right ankle pain. Neurologic: Denies headache, focal weakness or sensory changes Complete systems were reviewed and found to be within normal limits, except as documented in this note. Allergies: Allergies: Allergies Coded Allergies Type Severity Reaction Last Updated Verified amoxicillin Allergy Unknown 08/07/20 Yes clavulanic acid Allergy Unknown 08/07/20 Yes sulfamethoxazole Allergy Unknown 08/07/20 Yes trimethoprim Allergy Unknown 08/07/20 Yes Physical Exam: PE: Constitutional: Well developed, well nourished, no acute distress, non-toxic appearance HENT: Normocephalic, atraumatic Eyes: Conjunctiva normal, no discharge Neck: Normal range of motion, no tenderness, supple Lungs & Thorax: No respiratory distress, equal chest rise and fall Abdomen: Soft, no tenderness Skin: Warm, dry, no erythema, no rash Back: No tenderness, no CVA tenderness Extremities: Pain with movement of right ankle. No signs of infection or bone fracture. Neurologic: Alert and oriented X 3, normal motor function, normal sensory function, no focal deficits noted Psychologic: Affect normal, judgment normal Current Patient Data: Vital Signs: Vital Signs Date Time Temp Pulse Resp B/P (MAP) Pulse Ox O2 Delivery O2 Flow Rate FiO2 10/21/20 15:34 97.9 94 16 174/76 (108) 98 Room Air Heart Score: Risk Factors: Risk Factors: DM, Current or recent (<one month) smoker, HTN, HLP, family history of CAD, obesity. Risk Scores: Score 0 - 3: 2.5% MACE over next 6 weeks - Discharge Home Score 4 - 6: 20.3% MACE over next 6 weeks - Admit for Clinical Observation Score 7 - 10: 72.7% MACE over next 6 weeks - Early Invasive Strategies Course & Med Decision Making: Course & Med Decision Making Patient is a 65 year old female who presents with right ankle pain. Patient has pain on top of foot and back of ankle with movement that began yesterday morning. Patient believes it is an overuse injury. Patient stable for discharge with outpatient follow-up with ortho. Discussed findings and plan with patient, who acknowledges understanding and agreement. Adam Disclaimer: [place] Disclaimer: This electronic medical record was generated, in whole or in part, using a voice recognition dictation system. Departure Departure: Impression: Primary Impression: Ankle pain, right Disposition: 01 DC HOME SELF CARE/HOMELESS Condition: GOOD Referrals: MARIETTA ALSTON DO (PCP) MARIO GARCIA MD Patient Instructions: Ankle Pain Additional Instructions: Please maintain walking boot with any activity. Take over the counter Tylenol as needed for pain. Follow up with orthopedics as above. Ice area 20 mins on and leave off for next 20 mins. Repeat several times daily as needed for the next few days. RAMIN NAVA DO Oct 21, 2020 15:57
== END 2020-10-21 16:06 | disposition home or self-care (01) ==
LOC: ER 15:22
DX: M25.571 Pain in right ankle and joints of right foot (principal); I10 Essential (primary) hypertension; E03.9 Hypothyroidism, unspecified; Z87.442 Personal history of urinary calculi; Z87.440 Personal history of urinary (tract) infections; Z88.1 Allergy status to other antibiotic agents; Z88.2 Allergy status to sulfonamides
CPT/HCPCS: 99282

== ENCOUNTER → 2020-10-27 | Outpatient (CLI) | payer MEDICARE, OTHER ==
[2020-10-21 15:34] VITALS: BP 174/76
--- NOTE | 2020-10-27 15:29 | RAD ---
3 views the right ankle without comparison for right ankle pain and swelling. FINDINGS: There is no fracture, dislocation, or acute osseous abnormality identified. Ankle mortise is symmetric. No significant degenerative changes. No pathologic calcifications. IMPRESSION: 1. No acute osseous abnormality. Electronically signed by: Uri Larson MD (10/27/2020 3:26 PM) [id number]
== END ==
LOC: DXRAD 13:35
PROVIDERS: ATTEND Physician Assistant
DX: R22.41 Localized swelling, mass and lump, right lower limb (principal)
CPT/HCPCS: 73610

== ENCOUNTER 2021-12-12 13:40 | Emergency (ER) | payer MEDICARE, OTHER ==
[~2021-12-12] VITALS: Ht 165.1 cm; Wt 97.3 kg
[2021-12-12 14:00] VITALS: BP 145/88
[2021-12-12] MEDS ORDERED: COLCHICINE 0.6 MG TABLET. PO SCH (14:30)
--- NOTE | 2021-12-12 14:34 | PHYS DOC ---
Past History Past Medical History: Gallstones, Hypertension, Hypothyroid, Kidney Stones, Pancreatitis, UTI, Other Additional Past Medical Histor: glomelular nephritis, anal fistula, rt breast lump (RONALD DIAZ APRN) Past Surgical History: Cholecystectomy, Additional Past Surgical Histo: anal fistula repairx3; removal of breast lump- rt breast (RONALD DIAZ APRN) Alcohol Use: None Drug Use: None (RONALD DIAZ APRN) General Adult EDM: Chief Complaint: ANKLE PROBLEM HPI: HPI: Patient is a 66-year-old female who presents with right ankle pain. Patient states that she tripped over her rug and injured her ankle a few days ago. Patient states "it feels like the pain I had when I had a flareup of gout". Denies taking anything for pain. History of hypertension, kidney disease. (RONALD DIAZ APRN) Review of Systems: Review of Systems: ROS At least 10 ROS systems have been reviewed and are negative except as documented in the HPI. General: Negative except as outlined in HPI above. Skin: Negative except as outlined in HPI above. HEENT: Negative except as outlined in HPI above. Neck: Negative except as outlined in HPI above. Respiratory: Negative except as outlined in HPI above.. Cardiovascular: Negative except as outlined in HPI above. Abdomen: Negative except as outlined in HPI above. : Negative except as outlined in HPI above. Back/MSK: Negative except as outlined in HPI above. Neuro: Negative except as outlined in HPI above. Psych: Negative except as outlined in HPI above. (RONALD DIAZ APRN) Allergies: Allergies: Allergies Coded Allergies Type Severity Reaction Last Updated Verified amoxicillin Allergy Unknown 08/07/20 Yes clavulanic acid Allergy Unknown 08/07/20 Yes sulfamethoxazole Allergy Unknown 08/07/20 Yes trimethoprim Allergy Unknown 08/07/20 Yes (RONALD DIAZ APRN) Physical Exam: PE: Constitutional: Well developed, well nourished, no acute distress, non-toxic appearance. [] HENT: Normocephalic, atraumatic, bilateral external ears normal, oropharynx moist, no oral exudates, nose normal. [] Eyes: PERRLA, EOMI, conjunctiva normal, no discharge. [] Neck: Normal range of motion, no tenderness, supple, no stridor. [] Cardiovascular:Heart rate regular rhythm, no murmur [] Lungs & Thorax: Bilateral breath sounds clear to auscultation [] Abdomen: Bowel sounds normal, soft, no tenderness, no masses, no pulsatile masses. [] Skin: Warm, dry, no erythema, no rash. [] Back: No tenderness, no CVA tenderness. [] Extremities: Right ankle tenderness,, ROM intact, swelling to right ankle, pedal pulses intact Neurologic: Alert and oriented X 3, normal motor function, normal sensory function, no focal deficits noted. [] Psychologic: Affect normal, judgement normal, mood normal. [] (RONALD DIAZ APRN) Current Patient Data: Vital Signs: Vital Signs Date Time Temp Pulse Resp B/P (MAP) Pulse Ox O2 Delivery O2 Flow Rate FiO2 12/12/21 14:00 97.7 88 20 145/88 (107) 99 Room Air (RONALD DIAZ APRN) EKG: EKG: [] (RONALD DIAZ APRN) Radiology/Procedures: Radiology/Procedures: []Exam performed: Right ankle 3 views. Indication: Right ankle pain Date of Service: 12/12/2021 3:02 PM. Comparison: Right ankle 3 views from October 27, 2020 Three views right ankle findings: Normal alignment of the ankle mortise is preserved. There is no acute fracture or dislocation. There is diffuse soft tissue swelling, no definite foreign body. Impression: Diffuse soft tissue swelling. No acute bony abnormality seen. Electronically signed by: Elizabeth Benavides MD (12/12/2021 3:13 PM) [facility] (RONALD DIAZ APRN) Heart Score: C/O Chest Pain: No Risk Factors: Risk Factors: DM, Current or recent (<one month) smoker, HTN, HLP, family history of CAD, obesity. Risk Scores: Score 0 - 3: 2.5% MACE over next 6 weeks - Discharge Home Score 4 - 6: 20.3% MACE over next 6 weeks - Admit for Clinical Observation Score 7 - 10: 72.7% MACE over next 6 weeks - Early Invasive Strategies (RONALD DIAZ APRN) Course & Med Decision Making: Course & Med Decision Making Pertinent Labs and Imaging studies reviewed. (See chart for details) [] 66-year-old female presents with right ankle pain. Patient reports couple days ago she slipped over a rug. Work-up in ER consisted of x-ray of right ankle. Patient states the pain feels similar to when she had a gout flareup in the past. Range of motion is intact. Patient has swelling to the ankle area. No redness or warmth. Ankle x-ray is unremarkable. Patient most likely has an exacerbation of her gout. Patient reports that symptoms are the same as last time. Sending patient home prescription for prednisone. Patient to follow-up with PCP for further management. Patient has a history of kidney disease. (RONALD DIAZ APRN) Dragon Disclaimer: Dragon Disclaimer: This electronic medical record was generated, in whole or in part, using a voice recognition dictation system. (RONALD DIAZ APRN) Attending Co-Sign The patient was seen and interviewed as well as examined at the bedside. The chart was reviewed. The case was discussed. Agree with the plan of care. (ZIGGY MURRELL DO) Departure Departure: Impression: Primary Impression: Ankle pain, right Qualified Codes: M25.571 - Pain in right ankle and joints of right foot Disposition: 01 HOME / SELF CARE / HOMELESS Condition: STABLE Referrals: TOMI LEES (PCP) Patient Instructions: Gout, [id number] Additional Instructions: You were seen in the emergency room for right ankle pain. X-ray was negative. You most likely have an exacerbation of your gout. I am going to send you home with a prescription for steroids. Please follow-up with your PCP for further management. EMERGENCY DEPARTMENT GENERAL DISCHARGE INSTRUCTIONS Thank you for coming to [facility] (ED) today and trusting us with you care. We trust that you had a positivie experience in our Emergency Department. If you wish to speak to the department management, you may call the director at [phone]. YOUR FOLLOW UP INSTRUCTIONS ARE FOLLOWS: 1. Do you have a private Doctor? If you do not have a private doctor, please ask for a resource list of physicians or clinics that may be able to assist you with foll ow up care. 2. The Emergency Physician has interpreted your x-rays. The X-Ray specialist will also review them. If there is a change in the findings, you will be notified in 48 hours when at all possible. 3. A lab test or culture has been done, your results will be reviewed and you will be notified if you need a change in treatment. ADDITIONAL INSTRUCTIONS AND INFORMATION: 1. Your care today has been supervised by a physician who is specially trained in emergency care. Many problems require more than one evaluation for a complete diagnosis and treatment. We recommend that you schedule your follow up appointment as re commended to ensure complete treatment of you illness or injury. If you are unable to obtain follow up care and continue to have a problem, or if your condition worsens, we recommend that you return to the ED. 2. We are not able to safely determine your condition over the phone nor are we able to give sound medical advice over the phone. For these safety reasons, if you call for medical advice we will ask you to come to the ED for further evaluation. 3. If you have any questions regarding these discharge instructions please call the ED at [phone]. SAFETY INFORMATION: In the interest of safety, wellness, and injury prevention; we encourage you to wear your sealbelt, if you smoke; quite smoking, and we encourage family to use a protective helmet for bicycling and other sporting events that present an increased risk for head injury. IF YOUR SYMPTOMS WORSEN OR NEW SYMPTOMS DEVELOP, OR YOU HAVE CONCERNS ABOUT YOUR CONDITION; OR IF YOUR CONDITION WORSENS WHILE YOU ARE WAITING FOR YOUR FOLLOW UP APPOINTMENT; EITHER CONTACT YOUR PRIMARY CARE DOCTOR, THE PHYSICIAN WHOSE NAME AND NUMBER YOU WERE GIVEN, OR RETURN TO THE ED IMMEDIATELY. Scripts Prednisone (PREDNISONE) 20 Mg Tablet 3 TAB PO DAILY for allergies for 5 Days, #15 TAB Prov: RONALD DIAZ APRN 12/12/21 RONALD DIAZ APRN Dec 12, 2021 14:34 ZIGGY MURRELL DO Dec 13, 2021 06:45
--- NOTE | 2021-12-12 15:15 | RAD ---
Exam performed: Right ankle 3 views. Indication: Right ankle pain Date of Service: 12/12/2021 3:02 PM. Comparison: Right ankle 3 views from October 27, 2020 Three views right ankle findings: Normal alignment of the ankle mortise is preserved. There is no acute fracture or dislocation. There is diffuse soft tissue swelling, no definite foreign body. Impression: Diffuse soft tissue swelling. No acute bony abnormality seen. Electronically signed by: Elizabeth Benavides MD (12/12/2021 3:13 PM) [facility]
[2021-12-12] MEDS ORDERED: PRED20TA PO (15:34)
[2021-12-12] MEDS ORDERED: predniSONE 20 MG TABLET PO ONE (15:45)
== END 2021-12-12 15:59 | disposition home or self-care (01) ==
LOC: ER 13:40
DX: M25.571 Pain in right ankle and joints of right foot (principal); I10 Essential (primary) hypertension; Z88.1 Allergy status to other antibiotic agents; Z88.2 Allergy status to sulfonamides; Z90.49 Acquired absence of other specified parts of digestive tract; Z87.442 Personal history of urinary calculi
CPT/HCPCS: 73610; 99283; J7512